=== PATIENT | male | born 1945 | race African-American/Black ===

== ENCOUNTER 2018-07-28 23:16 | Emergency (ER) | payer OTHER ==
[~2018-07-28] VITALS: Ht 185.4 cm; Wt 99.0 kg
[~2018-07-28 23:16] MED LIST: LISI-604 PO
[2018-07-28] MEDS ORDERED: SODIUM CHLORIDE 0.9% 1,000 ML IV ONE (23:55)
[2018-07-29] MEDS ORDERED: CALCIUM GLUCONATE 100MG/ML 10ML VIAL IV ONE (00:15)
[2018-07-29 00:49] LABS: BASOPHILS % 0.6 % (0.0-2.0); EOSINOPHILS % 0.2 % (0.0-5.0); HEMATOCRIT. 43.8 % (42.0-52.0); HEMOGLOBIN. 14.7 g/dL (14.0-18.0); LYMPHOCYTES % 7.3 % (20.0-50.0); MEAN CORPUSCULAR HEMOGLOBIN 32.6 pg (28.0-32.0); MEAN CORPUSCULAR VOLUME 97.2 fL (80.0-94.0); MEAN PLATELET VOLUME 8.5 fl (7.4-10.4); NEUTROPHILS % 81.9 % (40.0-76.0); PLATELET 112 x1000/uL (130-400); RED BLOOD CELL COUNT 4.51 mill/uL (4.7-6.1); RED CELL DISTRIBUTION WIDTH 14.3 % (11.6-14.6)
[2018-07-29 00:56] LABS: CHLORIDE 103 mEq/L (98-107)
[2018-07-29] MEDS ORDERED: CALCIUM GLUCONATE 1,000 MG in DEXTROSE 5% WATER 50 ML IV SCH (01:00)
[2018-07-29 05:04] VITALS: BP 118/68
== END 2018-07-29 05:23 | disposition home or self-care (01) ==
LOC: ER 23:16
DX: N17.9 Acute kidney failure, unspecified (principal); J44.9 Chronic obstructive pulmonary disease, unspecified; E11.9 Type 2 diabetes mellitus without complications; R53.1 Weakness; Z87.891 Personal history of nicotine dependence; Z79.899 Other long term (current) drug therapy
CPT/HCPCS: 36415; 71045; 80053; 83880; 84484; 85025; 93005; 96365; 99285; J0610; J7030; X7700; Z7610; J7060

== ENCOUNTER 2022-09-21 19:17 | Emergency (ER) | payer OTHER ==
[~2022-09-21] VITALS: Ht 185.4 cm; Wt 100.0 kg
[~2022-09-21 19:17] MED LIST changes: -LISI-604 PO; +LISI20TA31 PO
[2022-09-21] MEDS ORDERED: TETANUS, DIPHTHERIA, PERTUSSIS VAC/PF 0.5ML (>10YR OLD) IM ONE (22:00)
[2022-09-21 23:01] LABS: BASOPHILS % 0.3 % (0.0-2.0); EOSINOPHILS % 0.1 % (0.0-5.0); HEMATOCRIT. 37.5 % (42.0-52.0); HEMOGLOBIN. 12.3 g/dL (14.0-18.0); LYMPHOCYTES % 24.5 % (20.0-50.0); MEAN CORPUSCULAR HEMOGLOBIN 31.9 pg (28.0-32.0); MEAN CORPUSCULAR VOLUME 97.1 fL (80.0-94.0); MEAN PLATELET VOLUME 8.5 fl (7.4-10.4); MONOCYTES % 4.8 % (2.0-8.0); NEUTROPHILS % 70.3 % (40.0-76.0); PLATELET 198 x1000/uL (130-400); RED BLOOD CELL COUNT 3.86 mill/uL (4.7-6.1); RED CELL DISTRIBUTION WIDTH 14.2 % (11.6-14.6)
[2022-09-21 23:11] LABS: CHLORIDE 102 mEq/L (98-107)
[2022-09-21] MEDS ORDERED: LIDOCAINE HCL/EPINEPHRINE 1%-EPI 1:100,000 50 ML VIAL INFIL ONE (23:15)
[2022-09-21 23:19] LABS: ETHANOL BLOOD 184 mg/dL
[2022-09-21] MEDS ORDERED: LIDOCAINE HCL 1% 20ML VIAL (Pyxis) INJ INFIL ONE (23:30)
[2022-09-21] MEDS ORDERED: LIDOCAINE HCL 1% 10 MG/ML 10ML VIAL INJ NR (23:45)
[2022-09-22] MEDS ORDERED: CEPH500C2 MT (00:52)
[2022-09-22] MEDS ORDERED: IBUP-2029 MT (00:52)
[2022-09-22 02:03] VITALS: BP 96/51
== END 2022-09-22 06:00 | disposition home or self-care (01) ==
LOC: ER 19:23
DX: S01.91XA Laceration without foreign body of unspecified part of head, initial encounter (principal); W18.39XA Other fall on same level, initial encounter; Y93.89 Activity, other specified; Y92.89 Other specified places as the place of occurrence of the external cause; Y99.8 Other external cause status; F10.129 Alcohol abuse with intoxication, unspecified; Y90.6 Blood alcohol level of 120-199 mg/100 ml; J44.9 Chronic obstructive pulmonary disease, unspecified; E11.9 Type 2 diabetes mellitus without complications; I10 Essential (primary) hypertension
CPT/HCPCS: 12002; 36415; 70450; 80053; 80320; 85025; 90471; 90715; 99284; J3490; Z7610; G0480

== ENCOUNTER 2023-02-17 17:13 | Emergency (ER) | payer OTHER ==
[~2023-02-17] VITALS: Ht 185.4 cm; Wt 113.0 kg
[~2023-02-17 17:13] MED LIST changes: +CEPH500C2 MT; +IBUP-2029 MT
[2023-02-17] MEDS ORDERED: ASPIRIN 81MG TABLET PO ONE (17:45)
[2023-02-17] MEDS: NITROGLYCERIN 0.4MG TABLET SL SL PRN ×3 (18:43→18:50)
[2023-02-17 18:58] LABS: CHLORIDE 100 mEq/L (98-107)
[2023-02-17 19:14] LABS: HEMOGLOBIN. 14.1 g/dL (14.0-18.0); MEAN CORPUSCULAR HEMOGLOBIN 31.4 pg (28.0-32.0); MEAN CORPUSCULAR VOLUME 91.1 fL (80.0-94.0); MEAN PLATELET VOLUME 8.6 fl (7.4-10.4); PLATELET 194 x1000/uL (130-400); RED CELL DISTRIBUTION WIDTH 15.4 % (11.6-14.6)
[2023-02-17 19:52] VITALS: BP 157/70
[2023-02-17] MEDS ORDERED: IBUP-2029 MT (20:46)
[2023-02-18 00:27] LABS: PLATELET ESTIMATE NORMAL
== END 2023-02-17 21:17 | disposition home or self-care (01) ==
LOC: ER 17:13
DX: M13.812 Other specified arthritis, left shoulder (principal); R07.89 Other chest pain; J44.9 Chronic obstructive pulmonary disease, unspecified; E11.9 Type 2 diabetes mellitus without complications; I10 Essential (primary) hypertension; Z79.899 Other long term (current) drug therapy
CPT/HCPCS: 36415; 71045; 73030; 80053; 83880; 84484; 85025; 93005; 99285; Z7610